=== PATIENT | male | born 1990 | race Caucasian/White ===

== ENCOUNTER 2018-12-07 13:20 | Emergency (ER) | payer SELFPAY ==
[~2018-12-07] VITALS: Ht 170.2 cm; Wt 91.8 kg
[2018-12-07 13:24] VITALS: BP 125/71; PULSE 102; RESP 17; Ht 170.2 cm; Wt 91.8 kg
--- NOTE | 2018-12-07 14:25 | ERD ---
ER Documentation Chief Complaint Chief Complaint COUGH, CHEST WALL PAIN, ON AND OFF, ONSET 1 DAY, NO SOB HPI 28-year-old male, presents to the emergency department, complaining of burning e pigastric pain, intermittent, associated with dry cough and sore throat. The patient denies fever, no chills, no shortness of breath, no chest pain ROS All systems reviewed and are negative except as per history of present illness. Medications Home Meds Active Scripts Ranitidine Hcl* (Zantac*) 150 Mg Tablet, 150 MG PO BID PRN for EPIGASTRIC PAIN, #30 TAB Prov:JAYLEEN LEON MD 12/07/18 Lorazepam* (Ativan*) 0.5 Mg Tablet, 0.5 MG PO Q8H PRN for ANXIETY, #10 TAB Prov:JAYLEEN LEON MD 12/07/18 FmHx Family History: No diabetes, No coronary disease Physical Exam Vitals Vital Signs Date Temp Pulse Resp B/P (MAP) Pulse Ox O2 O2 Flow FiO2 Time Delivery Rate 12/07/18 98.7 102 17 125/71 96 13:24 (89) Physical Exam Const: No acute distress Head: Atraumatic Eyes: Normal Conjunctiva ENT: Normal External Ears, Nose and Mouth. Neck: Full range of motion. No meningismus. Resp: Clear to auscultation bilaterally Cardio: Regular rate and rhythm, no murmurs Abd: Soft, non tender, non distended. Normal bowel sounds Skin: No petechiae or rashes Back: No midline or flank tenderness Ext: No cyanosis, or edema Neur: Awake and alert Psych: Normal Mood and Affect Procedures/MDM Vital signs stable. Differential diagnosis include but not limited to: URI, PNA, chostochondritis, GERD, musculoskeletal injury, less likely PE, pericarditis, endocarditis. Physical examination and clinical presentation consistent most likely with GERD and anxiety. During the ED course the patient remained stable, no new complaints. Results and clinical impression discussed with patient who agrees with management. The patient is stable to be treated outpatient and will be discharged home with a Rx for ranitidine and Lorazepam; some side effects of prescribed medications (headache, rash, nausea, vomiting, diarrhea, drowsiness, habituation, bleeding, hypertension, interactions with other medications) were reviewed. The patient was informed that the evaluation in the emergency department has been done to rule out an acute emergency, therefore, chronic conditions like malignancy or autoimmune diseases have not been evaluated; therefore, the patient was instructed to follow up with the primary care provider in the next 48h. If symptoms persist, worsen or new symptoms develop, then patient should return to the ED immediately. Instructions explained and given directly by me to the patient with acknowledgment and demonstrated understanding. Disclaimer: Inadvertent spelling and grammatical errors are likely due to EHR/dictation software use and do not reflect on the overall quality of patient care. Also, please note that the electronic time recorded on this note does not necessarily reflect the actual time of the patient encounter. Departure Diagnosis: Primary Impression: GERD (gastroesophageal reflux disease) Additional Impression: Anxiety Condition: Stable Patient Instructions: Your Body's Response to Anxiety Additional Instructions: Muchas melvin por [facility] para villalba servicio. Esperamos que en villalba visita a la lakhwinder de emergencia villalba problema medico haya sido solucionado y que se sienta mucho mejor. Para estar seguros que villalba mejoria sigue en proceso, le pedimos el favor de hacer jazlyn yu de seguimiento medico con villalba doctor primario en los proximos 2-4 mistry. Lleve con usted estos documentos y las medicinas recetadas. Si lety sintomas empeoran, NO SE ESPERE, por favor regrese a alkhwinder de emergencia INMEDIATAMENTE. En nae que usted no tenga un mdico de atencin primaria: Llame al mdico o clnica comunitaria de referencia que aparece abajo eros las horas de consultorio para hacer jazlyn yu para que le vean. CLINICAS: [facility] [phone] [facility] [phone] [facility] [phone] [facility] [phone] [facility] [phone] [facility]. [phone] JAYLEEN VERGARA MD Dec 07, 2018 14:25
[2018-12-07] MEDS ORDERED: RANI150T35 PO (14:31)
[2018-12-07] MEDS ORDERED: LORA-441 PO (14:31)
== END 2018-12-07 14:32 | disposition home or self-care (01) ==
LOC: E/R 13:20
DX: K21.9 Gastro-esophageal reflux disease without esophagitis (principal); F41.9 Anxiety disorder, unspecified
CPT/HCPCS: 99283